=== PATIENT | male | born 1965 | race Caucasian/White ===

== ENCOUNTER 2020-12-24 03:24 | Inpatient (IN) | payer BC ==
[~2020-12-24] VITALS: Ht 185.4 cm; Wt 92.0 kg
[2020-12-24 04:36] LABS: EOSINOPHILS % (AUTO) 0 % (0-6); HEMOGLOBIN 14.3 g/dl (14.0-17.9)
[2020-12-24 04:38] LABS: BASOPHILS % (AUTO) 0.2 % (0-1); HEMATOCRIT 41.7 % (42.0-52.0); LYMPHOCYTES # (AUTO) 0.5 X10'3 (1.1-4.8); LYMPHOCYTES % (AUTO) 4.1 % (21-51); MEAN CORPUSCULAR HEMOGLOBIN 30.9 PG (27.0-31.0); MEAN CORPUSCULAR HGB CONC 34.3 g/dL (33.0-36.5); MEAN PLATELET VOLUME 8.7 FL (7.4-10.4); MONOCYTES # (AUTO) 1.3 X10'3 (0-0.9); MONOCYTES % (AUTO) 9.7 % (2-12); NEUTROPHILS # (AUTO) 11.2 X10'3 (1.8-7.7); PLATELET COUNT 208 X10'3 (140-440); RED BLOOD COUNT 4.64 X10'6 (4.70-6.10); RED CELL DISTRIBUTION WIDTH 13.4 % (11.5-14.5)
[2020-12-24 04:52] LABS: ALANINE AMINOTRANSFERASE 56 U/L (12-78); ALBUMIN 3.3 G/DL (3.4-5.0); ALBUMIN/GLOBULIN RATIO 0.8 (1.1-1.5); ALKALINE PHOSPHATASE 75 IU/L (46-116); ANION GAP 10 (8-16); BILIRUBIN,TOTAL 1.4 MG/DL (0.1-1.0); BLOOD UREA NITROGEN 14 MG/DL (7-18); BUN/CREATININE RATIO 13.1 (5.4-32.0); CALCIUM 8.5 MG/DL (8.5-10.1); CHLORIDE 95 MMOL/L (99-107); CREATININE 1.07 MG/DL (0.60-1.10); GLUCOSE 112 MG/DL (70-104); SODIUM 132 MMOL/L (135-145); TOTAL CARBON DIOXIDE 27.5 MMOL/L (24-32); TOTAL PROTEIN 7.6 G/DL (6.4-8.2); eGFR 72 ML/MIN
[2020-12-24 05:01] LABS: ASPARTATE AMINO TRANSFERASE 89 U/L (10-37); POTASSIUM 3.6 MMOL/L (3.5-5.1)
[2020-12-24] MEDS ORDERED: iohexol 350MG/ML 100ml bottle IV ONE (06:57)
--- NOTE | 2020-12-24 07:23 | NUR ---
urinated 900 ml of urine .light sanjay in color.
[2020-12-24] MEDS ORDERED: aspirin 81mg tab.chew PO ONE ×2 (08:15→09:40)
[2020-12-24] MEDS ORDERED: azithromycin/NS 500mg/250ml 250 ML IV ONE (08:15)
[2020-12-24] MEDS ORDERED: CefTRIAXone/D5W-Rocephin 1gm 50 ML IV ONE (08:15)
[2020-12-24] MEDS ORDERED: magnesium 4gm in 100ml NS 100 ML IV PRN (09:40)
[2020-12-24] MEDS ORDERED: magnesium 2GM in 50ml NS 50 ML IV PRN (09:40)
[2020-12-24] MEDS ORDERED: mag hydrox/Alum hydrox/simeth 30ml oral suspension PO PRN (09:40)
[2020-12-24] MEDS ORDERED: potassium Cl 20 mEq SR tablet PO PRN ×2 (09:40)
[2020-12-24] MEDS ORDERED: magnesium hydroxide 30ml (MOM) UD suspension PO PRN (09:40)
[2020-12-24] MEDS ORDERED: ipratropium/albuterol 3ml nebule NEB PRN (09:40)
[2020-12-24] MEDS ORDERED: potassium Cl 40MEQ/1/2NS 520ml 520 ML IV PRN ×2 (09:40)
[2020-12-24] MEDS ORDERED: albuterol 2.5 MG/3 ML nebule NEB PRN (09:40)
[2020-12-24] MEDS ORDERED: PERFLUTREN PROTEIN-A MICROSPHR (Optison) 0.22 MG/ML 3ML VIAL IV ONE (09:40)
[2020-12-24] MEDS ORDERED: ondansetron/PF 4mg/2ml inj IV PRN (09:40)
[2020-12-24] MEDS ORDERED: acetaminophen 325mg tablet PO PRN (10:10)
--- NOTE | 2020-12-24 10:21 | NUR ---
farm equipment service technician at bedside.
[2020-12-24] MEDS ORDERED: ROSU20TA31 PO (11:48)
[2020-12-24 12:20] VITALS: BP 113/71
[2020-12-24] MEDS: normal saline 1000ml 1,000 ML IV SCH ×2 (12:40→19:40)
[2020-12-24 15:00] VITALS: BP 116/67
[2020-12-24] MEDS ORDERED: atorvastatin 20mg tablet PO SCH (15:17)
[2020-12-24] MEDS: acetaminophen 325mg tablet PO PRN ×2 (15:46→23:41)
--- NOTE | 2020-12-24 15:54 | NUR ---
promotional table spacer PAGER ID: [phone] MESSAGE: Donaldo [id number]. Pt Lipitor dose is 80mg and thept only takes 20 every other day and will not take that much. Please adviseOlivia [phone]
[2020-12-24] MEDS: piperacillin/tazo 4.5gm/100ml 100 ML IV SCH ×2 (17:00→23:45)
--- NOTE | 2020-12-24 18:02 | NUR ---
Problems reprioritized. Patient report given, questions answered & plan of care reviewed with Cris NIXON.
[2020-12-24 18:30] VITALS: BP 101/62
--- NOTE | 2020-12-24 18:30 | NUR ---
Patient in room PCU 3014. I have received report from Olivia NIXON and had the opportunity to ask questions and assume patient care. pt on phone, no signs of distress noted.
[2020-12-24] MEDS: K and/or MAG REPLACEMENT MC SCH (20:00)
[2020-12-24] MEDS: lactobacillus rhamnosus 10,000 MMU CELLS/CAPSULE PO SCH (20:48)
[2020-12-24] MEDS: enoxaparin 40mg/0.4ml syringe SQ SCH (20:49)
[2020-12-25 03:00] VITALS: BP 107/61
[2020-12-25] MEDS: normal saline 1000ml 1,000 ML IV SCH ×2 (05:40→15:40)
--- NOTE | 2020-12-25 06:02 | NUR ---
Problems reprioritized. Patient report given, questions answered & plan of care reviewed with Olivia NIXON. pt rested through the night, stated he was feeling better.
[2020-12-25 07:02] VITALS: BP 120/70
[2020-12-25] MEDS: aspirin 325mg tablet, delayed-release (Ecotrin) PO SCH (07:39)
[2020-12-25] MEDS: piperacillin/tazo 4.5gm/100ml 100 ML IV SCH ×2 (07:39→16:26)
[2020-12-25] MEDS: lactobacillus rhamnosus 10,000 MMU CELLS/CAPSULE PO SCH ×2 (07:39→19:31)
[2020-12-25 07:49] LABS: BASOPHILS % (AUTO) 0.3 % (0-1); EOSINOPHILS % (AUTO) 0 % (0-6); HEMATOCRIT 40.3 % (42.0-52.0); HEMOGLOBIN 13.9 g/dl (14.0-17.9); LYMPHOCYTES % (AUTO) 11.4 % (21-51); MEAN CORPUSCULAR HEMOGLOBIN 30.9 PG (27.0-31.0); MEAN CORPUSCULAR HGB CONC 34.6 g/dL (33.0-36.5); MEAN CORPUSCULAR VOLUME 89.2 FL (78-98); MEAN PLATELET VOLUME 8.6 FL (7.4-10.4); NEUTROPHILS # (AUTO) 6.7 X10'3 (1.8-7.7); NEUTROPHILS % (AUTO) 77.3 % (42-75); PLATELET COUNT 179 X10'3 (140-440); RED BLOOD COUNT 4.51 X10'6 (4.70-6.10); RED CELL DISTRIBUTION WIDTH 13.4 % (11.5-14.5); WHITE BLOOD COUNT 8.6 X10'3 (4.5-11.0)
[2020-12-25] MEDS: K and/or MAG REPLACEMENT MC SCH ×2 (08:00→20:00)
[2020-12-25 08:11] LABS: ALANINE AMINOTRANSFERASE 70 U/L (12-78); ALBUMIN 2.8 G/DL (3.4-5.0); ALBUMIN/GLOBULIN RATIO 0.7 (1.1-1.5); ALKALINE PHOSPHATASE 73 IU/L (46-116); ANION GAP 8 (8-16); ASPARTATE AMINO TRANSFERASE 83 U/L (10-37); BLOOD UREA NITROGEN 13 MG/DL (7-18); BUN/CREATININE RATIO 12.5 (5.4-32.0); CALCIUM 7.9 MG/DL (8.5-10.1); CHLORIDE 99 MMOL/L (99-107); CHOL/HDL RATIO 2.9 (0.00-4.99); CHOLESTEROL 87 MG/DL (0-200); CREATININE 1.04 MG/DL (0.60-1.10); GLUCOSE 104 MG/DL (70-104); HDL CHOLESTEROL 30 MG/DL (35-60); LDL CHOLESTEROL 37 MG/DL (50-100); MAGNESIUM 2.1 MG/DL (1.5-2.4); POTASSIUM 3.7 MMOL/L (3.5-5.1); SODIUM 134 MMOL/L (135-145); TOTAL CARBON DIOXIDE 26.6 MMOL/L (24-32); TOTAL PROTEIN 6.9 G/DL (6.4-8.2); TRIGLYCERIDES 105 MG/DL (20-135); eGFR 75 ML/MIN
--- NOTE | 2020-12-25 10:18 | NUR ---
PAGER ID: [phone] MESSAGE: [id number]. Pt has TATE and we have tried Tylenol with no results, could I have a PRN [place] 5, Olivia [phone]
[2020-12-25 11:48] VITALS: BP 121/82
--- NOTE | 2020-12-25 18:09 | NUR ---
Problems reprioritized. Patient report given, questions answered & plan of care reviewed with Stefany NIXON.
[2020-12-25 18:11] VITALS: BP 115/72
[2020-12-25] MEDS ORDERED: atorvastatin 20mg tablet PO SCH (19:00)
[2020-12-25] MEDS: enoxaparin 40mg/0.4ml syringe SQ SCH (19:31)
[2020-12-25 23:00] VITALS: BP 120/85
[2020-12-26 03:00] VITALS: BP 122/84
[2020-12-26] MEDS: normal saline 1000ml 1,000 ML IV SCH (03:30)
[2020-12-26 06:45] LABS: BASOPHILS % (AUTO) 0.7 % (0-1); EOSINOPHILS # (AUTO) 0.1 X10'3 (0-0.9); EOSINOPHILS % (AUTO) 1.4 % (0-6); HEMATOCRIT 41.6 % (42.0-52.0); HEMOGLOBIN 14.4 g/dl (14.0-17.9); LYMPHOCYTES # (AUTO) 1.6 X10'3 (1.1-4.8); LYMPHOCYTES % (AUTO) 25.2 % (21-51); MEAN CORPUSCULAR HEMOGLOBIN 30.9 PG (27.0-31.0); MEAN CORPUSCULAR HGB CONC 34.5 g/dL (33.0-36.5); MEAN CORPUSCULAR VOLUME 89.4 FL (78-98); MEAN PLATELET VOLUME 8.6 FL (7.4-10.4); MONOCYTES # (AUTO) 0.9 X10'3 (0-0.9); MONOCYTES % (AUTO) 14.9 % (2-12); NEUTROPHILS # (AUTO) 3.6 X10'3 (1.8-7.7); NEUTROPHILS % (AUTO) 57.8 % (42-75); PLATELET COUNT 193 X10'3 (140-440); RED BLOOD COUNT 4.65 X10'6 (4.70-6.10); RED CELL DISTRIBUTION WIDTH 13.5 % (11.5-14.5); WHITE BLOOD COUNT 6.2 X10'3 (4.5-11.0)
[2020-12-26 06:59] LABS: ALANINE AMINOTRANSFERASE 94 U/L (12-78); ALBUMIN 2.9 G/DL (3.4-5.0); ALBUMIN/GLOBULIN RATIO 0.7 (1.1-1.5); ALKALINE PHOSPHATASE 72 IU/L (46-116); ANION GAP 9 (8-16); ASPARTATE AMINO TRANSFERASE 103 U/L (10-37); BILIRUBIN,TOTAL 0.9 MG/DL (0.1-1.0); BLOOD UREA NITROGEN 10 MG/DL (7-18); BUN/CREATININE RATIO 9.3 (5.4-32.0); CALCIUM 8.6 MG/DL (8.5-10.1); CHLORIDE 101 MMOL/L (99-107); CREATININE 1.07 MG/DL (0.60-1.10); GLUCOSE 105 MG/DL (70-104); MAGNESIUM 2.2 MG/DL (1.5-2.4); POTASSIUM 4.1 MMOL/L (3.5-5.1); SODIUM 140 MMOL/L (135-145); TOTAL CARBON DIOXIDE 29.7 MMOL/L (24-32); eGFR 72 ML/MIN
[2020-12-26] MEDS: K and/or MAG REPLACEMENT MC SCH (08:00)
[2020-12-26] MEDS ORDERED: LEVO500T89 PO (08:37)
[2020-12-26] MEDS ORDERED: ASPI-1071 PO (08:37)
[2020-12-26] MEDS: lactobacillus rhamnosus 10,000 MMU CELLS/CAPSULE PO SCH (08:53)
[2020-12-26] MEDS: piperacillin/tazo 4.5gm/100ml 100 ML IV SCH ×2 (08:54)
[2020-12-26] MEDS: aspirin 325mg tablet, delayed-release (Ecotrin) PO SCH (08:54)
--- NOTE | 2020-12-26 11:21 | NUR ---
Pt discharged home with , packet reviewed before signing and being sent home. All belongings sent home with patient, RX faxed to [facility] in [place]. Patient walked down and was stable on discharged.
== END 2020-12-26 11:30 | disposition home or self-care (01) | DRG 193 ==
LOC: ER 03:24 → ED HOLD 09:40 → PCU 3S 12:07
PROVIDERS: ADMIT Family Medicine; ATTEND Family Medicine
PROC: B32T1ZZ Computerized Tomography (CT Scan) of Left Pulmonary Artery using Low Osmolar Contrast (ICD-10-PCS; principal; 2020-12-24)
PROC: B3201ZZ Computerized Tomography (CT Scan) of Thoracic Aorta using Low Osmolar Contrast (ICD-10-PCS; 2020-12-24)
PROC: B32S1ZZ Computerized Tomography (CT Scan) of Right Pulmonary Artery using Low Osmolar Contrast (ICD-10-PCS; 2020-12-24)
DX: J18.9 Pneumonia, unspecified organism (principal); I21.4 Non-ST elevation (NSTEMI) myocardial infarction; E87.1 Hypo-osmolality and hyponatremia; I25.10 Atherosclerotic heart disease of native coronary artery without angina pectoris; R51.9 Headache, unspecified; I25.2 Old myocardial infarction; Z82.49 Family history of ischemic heart disease and other diseases of the circulatory system; Z83.3 Family history of diabetes mellitus; Z95.1 Presence of aortocoronary bypass graft
CPT/HCPCS: 36415; 70450; 71045; 71275; 80053; 80061; 83605; 83735; 83880; 84145; 84484; 85025; 87040; 87081; 93005; 93306; 94760; 96365; 99285; G0378; J0456; J0696; J1650; J2543; J7030; Q9967